=== PATIENT | female | born 1990 | race Caucasian/White ===

== ENCOUNTER 2020-06-29 13:53 | Outpatient (REF) | payer OTHER, SELFPAY ==
[2020-06-29 14:40] LABS: COVID-19 Test Negative (Negative)
== END 2020-06-29 13:54 | disposition home or self-care (01) ==
LOC: HO.LAB 13:53
PROVIDERS: Visit Provider Internal Medicine
DX: Z20.828 Contact with and (suspected) exposure to other viral communicable diseases (principal)
CPT/HCPCS: 87635

== ENCOUNTER 2020-07-22 13:11 | Outpatient (REF) | payer OTHER, SELFPAY ==
[2020-07-22 13:57] LABS: COVID-19 Test Negative (Negative)
== END 2020-07-22 13:12 | disposition home or self-care (01) ==
LOC: HO.EMPCOV 13:11
PROVIDERS: Visit Provider Internal Medicine
DX: Z20.828 Contact with and (suspected) exposure to other viral communicable diseases (principal)
CPT/HCPCS: 87635; C9803

== ENCOUNTER 2020-09-14 14:37 | Outpatient (REF) | payer OTHER, SELFPAY ==
[2020-09-14 15:13] LABS: COVID-19 Test Negative (Negative); IDNOW Serial# 55D5AD1C
== END 2020-09-14 14:38 | disposition home or self-care (01) ==
LOC: HO.EMPCOV 14:37
PROVIDERS: Visit Provider Internal Medicine
DX: Z20.822 Contact with and (suspected) exposure to COVID-19 (principal)
CPT/HCPCS: 36415; 87635; C9803

== ENCOUNTER 2020-09-19 12:16 | Outpatient (REF) | payer OTHER, SELFPAY ==
[2020-09-19 12:44] LABS: COVID-19 Test Negative (Negative)
== END 2020-09-19 12:17 | disposition home or self-care (01) ==
LOC: HO.EMPCOV 12:16
PROVIDERS: Visit Provider Internal Medicine
DX: Z20.822 Contact with and (suspected) exposure to COVID-19 (principal)
CPT/HCPCS: 36415; 87635; C9803

== ENCOUNTER 2020-11-25 08:15 | Outpatient (REF) | payer OTHER, SELFPAY ==
[2020-11-25 08:52] LABS: COVID-19 Test Negative (Negative); IDNOW Serial# 55D5AD1C
== END 2020-11-25 08:16 | disposition home or self-care (01) ==
LOC: HO.EMPCOV 08:15
PROVIDERS: Visit Provider Internal Medicine
DX: Z20.822 Contact with and (suspected) exposure to COVID-19 (principal)
CPT/HCPCS: 36415; 87635; C9803

== ENCOUNTER 2022-11-11 15:04 | Emergency (ER) | payer OTHER, SELFPAY ==
[2022-11-11 15:15] VITALS: BP 111/62; BP 158/90; PULSE 101; PULSE 115; RESP 16; TEMP 36.3; O2SAT 98; O2SAT 99; BMI 29.2
[2022-11-11 15:22] VITALS: PULSE 101
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
== END 2022-11-11 16:28 | disposition left against medical advice (07) ==
PROVIDERS: Emergency Provider Emergency Medicine
DX: S09.90XA Unspecified injury of head, initial encounter (principal); V43.52XA Car driver injured in collision with other type car in traffic accident, initial encounter; Y93.9 Activity, unspecified; Y92.410 Unspecified street and highway as the place of occurrence of the external cause; Y99.9 Unspecified external cause status
CPT/HCPCS: 99283; 99284

== ENCOUNTER 2024-04-21 12:19 | Emergency (ER) | payer SELFPAY ==
[2024-04-21 12:29] VITALS: BP 100/72; PULSE 73; RESP 16; TEMP 36.9; O2SAT 100; BMI 28.0
--- NOTE | 2024-04-21 12:30 | ED_ITS ---
HPI - General Adult General Chief complaint: Skin/Abscess/Foreign Body Stated complaint: Bump inner thigh Time Seen by Provider: 04/21/24 13:40 Source: patient Mode of arrival: ambulatory Limitations: no limitations History of Present Illness ED Provider: DIANN MENDOZA PA-C HPI narrative: 33 year old female with no significant pmhx presents to the ED today for evaluation of bump to external genitalia x4 days. Reports the area is painful and tender to the touch. Has been applying warm compresses at home without improvement. Denies drainage. Patient states the bump has remained the same size and has not increased. Denies history of similar. Not taking anything for the pain at home. Denies fever, chills, dysuria, vaginal bleeding or discharge. Denies concerns for STI. Related Data Previous Rx's ?Medication ?Instructions ?Recorded cephalexin 500 mg capsule 500 mg PO QID 7 days #28 caps 04/21/24 doxycycline hyclate 100 mg tablet 100 mg PO BID 7 days #14 tabs 04/21/24 morphine 15 mg immediate release 15 mg PO Q8H PRN pain (scale score 04/21/24 tablet 4-6) #5 tabs Allergies Allergy/AdvReac Type Severity Reaction Status Date / Time No Known Allergies Allergy Verified 04/21/24 12:31 Review of Systems Review of Systems: Constitutional: No fever, chills, fatigue, night sweats, weight changes ENT/Mouth: No ear pain, hearing loss, nasal congestion, sinus pain, rhinorrhea, sore throat Eyes: No eye pain, swelling, redness, vision changes, discharge Cardio: No chest pain, palpitations, FREEDMAN, orthopnea, peripheral edema Pulm: No SOB, cough, sputum, wheezing, dyspnea, hemoptysis GI: No nausea, vomiting, hematemesis, abdominal pain, diarrhea, constipation, hematochezia, melena : No irregular bleeding, dysuria, frequency, urgency, hesitancy, hematuria, flank pain, urinary flow changes, urinary incontinence or retention, +mass to external genitalia MSK: No back pain, neck pain, joint pain, myalgias Skin: No lesions, rashes Neuro: No weakness, numbness, paresthesias, LOC, dizziness, headache Psych: No anxiety/panic, depression, SI/HI, AH/VH All other systems reviewed and are negative. [facility] Past Medical History Attestation statement: The following information was validated with the patient. Source: old records reviewed and nursing notes reviewed Medical History Depression Social History Social History Alcohol intake: current Alcohol intake frequency: a few times a month Substance Use Type: Marijuana Advance Directives: No Advance Directives Information Provided: No Physical Exam ED Vital Signs: Vital Signs - 24 hr 04/21/24 12:29 04/21/24 14:11 Temperature 98.4 F 97.2 F Pulse Rate 73 78 Respiratory Rate 16 20 Blood Pressure 100/72 100/67 Pulse Oximetry 100 97 Oxygen Delivery Method Room Air Room Air BMI result Body Mass Index 28.0 Vital signs stable. afebrile. Const General: cooperative, healthy appearing, comfortable and no acute distress Orientation/consciousness: patient oriented x3 Limitations: no limitations HENMT Head: Yes normal to inspection, Yes No palpable skull fracture present, Yes normocephalic and Yes atraumatic Eyes General: appearance normal, both eyes and all related structures Pupils: Equal, round and reactive pupils present Neck Neck: Yes normal visual inspection and Yes no lymphadenopathy Resp Effort & Inspection: normal respiratory effort and able to speak in complete sentences Auscultation: clear to auscultation bilaterally Cardio Rate: regular rate Rhythm: regular rhythm GI Inspection: Yes normal to inspection Palpation (GI): Soft to palpation and nontender Other: Patient declining lapidary apprentice for sensitive exam. External genitalia is without lesions, swelling. there is a small [id number] area of induration and erythema noted to the posterior aspect of the right labia majora, exquisitely ttp. no palpable fluctuance. no central pointing. no inguinal LAD. Speculum exam deferred. Neuro General: patient oriented x3 Cranial nerves: Yes Equal, round and reactive pupils present Course Course Course Narrative: RME, this is a rapid medical exam performed by Rajiv Sorenson please refer to primary provider for complete H&P- 33 year old female presents for evaluation of a painful bump to my right inner thigh. Not visualized in triage. She is nontoxic appearing. Plan for physical exam when available Reevaluation(s) Reevaluation #1: Physical exam findings are consistent with bartholins cyst with overlying cellulitis/ induration. No evidence of abscess or fluid collection to drain. exam/ history not consistent with sexually transmitted infection and patient declining testing at this time. will send abx to pharmacy. Patient has remained stable throughout ED visit today. Discussed worrisome signs and symptoms and when to return to the ED. All questions answered at this time. Patient is agreeable with disposition and stable for discharge. Medications Administered Discontinued Medications Generic Name Dose Route Start Last Admin Trade Name Prosper PRN Reason Stop Dose Admin Acetaminophen 975 mg 04/21/24 13:56 04/21/24 14:05 Acetaminophen 325 Mg Tablet PO 04/21/24 13:57 975 mg ONCE ONE Administration Medical Decision Making Medical Decision Making MDM Narrative: 33 year old female with no significant pmhx presents to the ED today for evaluation of bump to external genitalia x4 days. VSS. Afebrile. She is nontoxic appearing and in NAD. Declining lapidary apprentice for sensitive exam. On sensitive exam, external genitalia is without lesions, swelling. there is a small [id number] area of induration and erythema noted to the posterior aspect of the right labia majora, exquisitely ttp. no palpable fluctuance. no central pointing. no inguinal LAD. Speculum exam deferred. Differential diagnosis includes bartholins cyst vs abscess. Unlikely HSV, VZV, syphillis, UTI, SJS/TEN, fourniers gangrene. Plan for discharge. Differential Diagnosis Differential Diagnoses: The differential diagnosis associated with the presentation includes as above. Admission/Observation not indicated. Independent Historian Clinical information obtained from an independent historian. History obtained from or confirmed by: Spouse () External Record Review External record reviewed: Inpatient record Prescription Management I considered prescription management with: Antibiotic (keflex, doxy) Social Determinants Patient?s care significantly limited by Social Determinants of Health including: Other Social Determinant of Health Critical Care Time Critical Care Time Critical Care Time: No Discharge Plan Discharge Clinical Impression: Bartholin gland cyst Patient Disposition: Home, Self-Care Instructions: Bartholin Cyst (ED), Sitz Bath (DC) Additional Instructions: Your exam today is consistent with bartholins cyst. There is no evidence of abscess or indication for drainage. Please keep the area surrounding clean and dry. Continue to apply warm compresses. You will be given a prescription for antibiotics (Keflex and Doxycycline). Please take the antibiotics as directed for the full course of the medication. If the abscess progresses you may have to have the area incised and drained. I recommend you take 600mg ibuprofen every 6 hours or Tylenol 650mg every 6 hours as needed for pain. If needed, you can alternate these medications so that you take one medication every 3 hours. For example, at noon take ibuprofen, then at 3pm take Tylenol, then at 6pm take ibuprofen. A few tablets of morphine have been sent to your pharmacy for you to take as needed for breakthrough pain. Use this was caution as this is a controlled substance and has a addictive properties. Please schedule an appointment with your primary care provider as soon as possible for follow up. You have also been provided with a referral to an OBGYN. You may call them to establish care. They will not call you. Return to the Emergency Department if you experience fevers greater than 100.4F, increase in area of redness or swelling, increasing amount of discharge from the area, increased tenderness around the area, or any other concerning symptoms. Prescriptions: New cephalexin 500 mg capsule 500 mg PO QID 7 Days Qty: 28 0RF doxycycline hyclate 100 mg tablet 100 mg PO BID 7 Days Qty: 14 0RF morphine 15 mg tablet 15 mg PO Q8H PRN (Reason: pain (scale score 4-6)) Qty: 5 0RF Rx Instructions: Partial Fill upon patient request. Referrals: [facility] [place] Group] Stand Alone Forms: Work/School Release Discharge Date/Time: 04/21/24 14:12 Print Language: Somali
[2024-04-21] MEDS: Acetaminophen 325 MG TABLET 975 MG PO (14:05)
[2024-04-21 14:11] VITALS: BP 100/67; PULSE 78; RESP 20; TEMP 36.2; O2SAT 97
== END 2024-04-21 14:12 | disposition home or self-care (01) ==
PROVIDERS: Emergency Provider Emergency Medicine
DX: N75.0 Cyst of Bartholin's gland (principal); R10.2 Pelvic and perineal pain
CPT/HCPCS: 99283